=== PATIENT | male | born 1975 | race Caucasian/White ===

== ENCOUNTER 2017-05-03 06:55 | Emergency (ER) | payer OTHER ==
[~2017-05-03] VITALS: Ht 182.9 cm; Wt 88.5 kg
[2017-05-03] MEDS ORDERED: XANAX0.5 MG (07:42)
[2017-05-03] MEDS ORDERED: DIPHTH/TETANUS/ACEL. PERTUSSIS 0.5 ML SYR IM ONE (07:45)
[2017-05-03] MEDS ORDERED: ADDERALL 10 MG10 MG (07:49)
[2017-05-03] MEDS ORDERED: CHANTIX1 MG (07:50)
[2017-05-03] MEDS ORDERED: IBUPROFEN 600 MG TAB PO STA (07:58)
[2017-05-03] MEDS ORDERED: CLINDAMYCIN PHOS 600 MG/ 4 ML VIAL IM ONE (08:00)
[2017-05-03 10:01] VITALS: BP 124/77
== END 2017-05-03 08:40 | disposition home or self-care (01) ==
LOC: FSED 06:55
DX: S91.132A Puncture wound without foreign body of left great toe without damage to nail, initial encounter (principal); W45.0XXA Nail entering through skin, initial encounter; L03.116 Cellulitis of left lower limb; F98.8 Other specified behavioral and emotional disorders with onset usually occurring in childhood and adolescence; Z87.891 Personal history of nicotine dependence; Z23 Encounter for immunization
CPT/HCPCS: 99283

== ENCOUNTER 2017-05-20 10:43 | Emergency (ER) | payer OTHER ==
[~2017-05-20] VITALS: Ht 182.9 cm; Wt 88.5 kg
[~2017-05-20 10:43] MED LIST: ADDERALL 10 MG10 MG; CHANTIX1 MG; XANAX0.5 MG
--- OUTSIDE RECORDS SUMMARY | 2017-05-20 10:46 | XMS REPORT | Continuity of Care Document ---
Author Author [facility] Organization [facility] Address [address] [place] [address] Phone Unavailable Care Team Providers Care Playground Monitor Name Role Phone NO, PCP PCP Unavailable Insurance Providers Guarantor Bird Bell Address [address] [place] [address] Email NA [employer] Policy Number [id number] Subscriber's Name Bird Bell Relationship 18 Self / Same As Patient Advance Directives Directive Response Recorded Date/Time Does the patient have an advance directive? No 05/03/17 7:56am Do you have a Directive to Physician? No 05/03/17 7:56am Do you have a Medical Power of Panel Beater? No 05/03/17 7:56am Do you have an out of hospital Do Not Resuscitate Order? No 05/03/17 7:56am Do you have any special needs we should be aware of? No 05/03/17 7:56am Do you have a support person here with you today? Yes 05/03/17 7:56am Did patient receive Notice of Privacy Practices? Yes 05/03/17 7:56am Did patient receive patient rights and responsibilities? Yes 05/03/17 7:56am Problems No problem information available. Medications Current Home Medications Medication Dose Units Route Directions Days Qty Instructions Start Date Alprazolam (Xanax) 0.5 Mg Tablet Daily Amphet Asp/Amphet/D-Amphet (Adderall 10 Mg Tablet) 10 Mg Tablet Varenicline Tartrate (Chantix) 1 Mg Tablet Social History Smoking Status Start Date Stop Date Former smoker Hospital Discharge Instructions No hospital discharge instruction information available. Plan of Care Discharge Date 05/03/17 8:40am Disposition HOME, SELF-CARE Condition at Discharge Stable Instructions/Education Provided Cellulitis Forms Provided Work/School Excuse Prescriptions See Medication Section Additional Instructions/Education Follow-up immediately, if symptoms worsen , and if the redness or pain is increasing, or if you develop fever or chills. Keep the foot elevated as much as possible, for the next 4 -48 hours. Complete ALL antibiotics. In addition to the prescription pain medication, recommend: Ibuprofen 200 mg - 3 tabs together every 8 hours, with food, for the next 2-3 days, to help control the pain. Functional Status No functional status information available. Allergies, Adverse Reactions, Alerts No known allergies. Immunizations No immunization information available. Vital Signs Acute Vital Signs Vital Response Date/Time Pulse Pulse Rate (adult) 76 bpm (60 - 90) 05/03/2017 10:01am Respiratory Rate 16 bpm (12 - 24) 05/03/2017 10:01am Blood Pressure 124/77 mm Hg 05/03/2017 10:01am Height 6 ft 0 in 05/03/2017 7:00am Weight 195 lb 05/03/2017 7:00am Body Mass Index 26.4 kg/m^2 05/03/2017 7:00am Results No relevant diagnostic test, laboratory data and/or discharge summary information available. Procedures No procedure information available. Encounters Encounter Location Arrival/Admit Date Discharge/Depart Date Attending Provider Departed Emergency Room [facility] 05/03/17 6:55am 8:40am FABIÁN PRUITT MD
[2017-05-20 11:57] VITALS: BP 138/78
[2017-05-20] MEDS ORDERED: BUPIVACAINE HCL 0.5% 10ML MPF VIAL INJ ONE (12:00)
== END 2017-05-20 11:45 | disposition home or self-care (01) ==
LOC: FSED 10:43
DX: K08.9 Disorder of teeth and supporting structures, unspecified (principal); K02.9 Dental caries, unspecified
CPT/HCPCS: 99282

== ENCOUNTER 2018-02-04 11:26 | Emergency (ER) | payer BC, OTHER ==
[~2018-02-04] VITALS: Ht 182.9 cm; Wt 95.3 kg
[2018-02-04] MEDS ORDERED: ONDANSETRON HCL INJ 2 MG/ML VIAL IV STA (11:39)
[2018-02-04] MEDS ORDERED: MORPHINE SULFATE 5 MG/ML VIAL IV ONE (11:45)
--- NOTE | 2018-02-04 12:43 | Diagnostic Imaging Report ---
CT scan of the pelvis WITHOUT intravenous contrast. TECHNIQUE: Standard departmental protocols were used. Sagittal and coronal reformatted images were obtained. Total exam DLP: 302.69 HISTORY: Pain status post fall from ladder. COMPARISON: None. FINDINGS: Bones: No acute displaced fracture. Well corticated ossicle is present just lateral to the anterior lateral to the hip bilaterally which may reflect osteophytes or less likely prior avulsion injury. Joints: Joint spaces are preserved. Soft tissues: No acute abnormality. IMPRESSION: No acute osseous abnormality. Signed by: Dr. Dottie Caicedo M.D. on 02/04/2018 12:39 PM
--- NOTE | 2018-02-04 12:49 | Diagnostic Imaging Report ---
Examination: CT LUMBAR SPINE WITHOUT CONTRAST History: Low back pain after fall. Comparison studies: None Technique: Axial images were obtained through the lumbar spine from T12. Coronal and sagittal reconstructions obtained from the axial data. Dose modulation, iterative reconstruction, and/or weight based adjustment of the mA/kV was utilized to reduce the radiation dose to as low as reasonably achievable. Intravenous contrast: None Findings: The usual 5 non-rib bearing lumbar vertebral bodies are present. Alignment: Normal lordosis. No scoliosis. Soft tissues: No abnormalities. Paraspinal muscles: Unremarkable. Sacroiliac joints: No degenerative changes. Vertebrae: No fractures, infection or neoplasm. Degenerative changes: L1-L2 through L5-S1: No abnormalities. IMPRESSION: No acute abnormality. Signed by: Dr. Lin Flaherty M.D. on 02/04/2018 12:46 PM
[2018-02-04] MEDS ORDERED: MORPHINE SULFATE 2 MG/ML SYR IV STA (12:57)
--- NOTE | 2018-02-04 13:20 | Diagnostic Imaging Report ---
Right knee 3 views. Right femur 7 views HISTORY: Pain COMPARISON: None FINDINGS: No displaced fracture. Osseous alignment is within normal limits. The joint spaces are well-maintained. The soft tissues appear unremarkable. IMPRESSION: No acute radiographic abnormality. Signed by: Dr. Dottie Caicedo M.D. on 02/04/2018 1:17 PM
[2018-02-04 14:14] VITALS: BP 130/82
== END 2018-02-04 14:23 | disposition home or self-care (01) ==
LOC: FSED 11:26
DX: G89.11 Acute pain due to trauma (principal); M54.5 Low back pain; S70.11XA Contusion of right thigh, initial encounter; S80.01XA Contusion of right knee, initial encounter; W11.XXXA Fall on and from ladder, initial encounter; Y92.008 Other place in unspecified non-institutional (private) residence as the place of occurrence of the external cause
CPT/HCPCS: 72131; 72192; 73552; 73562; 99284; J2270 ×2; J2405

== ENCOUNTER 2018-04-21 08:28 | Emergency (ER) | payer BC ==
[~2018-04-21] VITALS: Ht 182.9 cm; Wt 95.3 kg
[~2018-04-21 08:28] MED LIST changes: -ADDERALL 10 MG10 MG; +ADDERALL 10 MG10 MG PO; -XANAX0.5 MG; +XANAX0.5 MG PO
--- OUTSIDE RECORDS SUMMARY | 2018-04-21 08:30 | XMS REPORT ---
Author Author [facility] Address Unknown Phone Unavailable Care Team Providers Care Assistant Professor Of Geography Name Role Phone Owen BUCKLEY Unavailable Unavailable Problems This patient has no known problems. Allergies, Adverse Reactions, Alerts This patient has no known allergies or adverse reactions. Medications This patient has no known medications. Results Test Description Test Time Test Comments Text Results Atomic Results Result Comments KNEE 3VW RT - HOPD 2018-02-04 13:13:00 [place] [address] Patient Name: BIRD ZARATE MR #: [id number] : 1975 Age/Sex: 42/M Req #: [id number] [facility] Physician: Ordered by: NIKHIL BUCKLEY MD Report #: [id number] Location: [facility] Room/Bed: Procedure: [id number] HOPD/KNEE 3VW RT - HOPD Exam Date: 02/04/18 Exam Time: 1256 REPORT STATUS: Signed Right knee 3 views. Right femur 7 views HISTORY: Pain COMPARISON: None FINDINGS: No displaced fracture. Osseous alignment is within normal limits. The joint spaces are well- maintained. The soft tissues appear unremarkable. IMPRESSION: No acute radiographic abnormality. Signed by: Dr. Dottie Mcmullen M.D. on 02/04/2018 1:17 PM Dictated By: JESSICA MCMULLEN MD, MD 16 Transcribed By: MERRILL on 02/04/181316 COPY TO: NIKHIL BUCKLEY MD FEMUR 2 VIEW RT - HOPD 2018-02-04 13:13:00 [place] [address] Patient Name: BIRD ZARATE MR #: [id number] : 1975 Age/Sex: 42/M Req #: [id number] Adm Physician: Ordered by: NIKHIL BUCKLEY MD Report #: [id number] Location: [facility] Room/Bed: Procedure: [id number] HOPD/FEMUR 2 VIEW RT - HOPD Exam Date: 02/04/18 Exam Time: 1245 REPORT STATUS: Signed Right knee 3 views. Right femur 7 views HISTORY: Pain COMPARISON: None FINDINGS: No displaced fracture. Osseous alignment is within normal limits. The joint spaces are well- maintained. The soft tissues appear unremarkable. IMPRESSION: No acute radiographic abnormality. Signed by: Dr. Dottie Mcmullen M.D. on 02/04/2018 1:17 PM Dictated By: JESSICA MCMULLEN MD, MD 16 Transcribed By: MERRILL on 02/04/181316 COPY TO: NIKHIL BUCKLEY MD CT LUMBAR SPINE WITHOUT-HOPD 2018-02-04 12:41:00 [place] [address] Patient Name: BIRD ZARATE MR #: [id number] : 1975 Age/Sex: 42/M Req #: [id number] Adm Physician: Ordered by: NIKHIL BUCKLEY MD Report #: [id number] Location: [facility] Room/Bed: Procedure: [id number] HOPD/CT LUMBAR SPINE WITHOUT-HOPD Exam Date: 02/04/18 Exam Time: 1228 REPORT STATUS: Signed Examination: CT LUMBAR SPINE WITHOUT CONTRAST History: Low back pain after fall. Comparison studies: None Technique: Axial images were obtained through the lumbar spine from T12. Coronal and sagittal reconstructions obtained from the axial data. Dose modulation, iterative reconstruction, and/or weight based adjustment of the mA/kV was utilized to reduce the radiation dose to as low as reasonably achievable. I ntravenous contrast: None Findings: The usual 5 non-rib bearing lumbar vertebral bodies are present. Alignment: Normal lordosis. No scoliosis. Soft tissues: No abnormalities. Paraspinal muscles: Unremarkable. Sacroiliac joints: No degenerative changes. Vertebrae: No fractures, infection or neoplasm. Degenerative changes: L1-L2 through L5-S1: No abnormalities. IMPRESSION: No acute abnormality. Signed by: Dr. Lin Flaherty M.D. on 02/04/2018 12:46 PM Dictated By: LIN LEWIS MD 1246 Transcribed By: MERRILL on 02/04/18 1246 COPY TO: NIKHIL BUCKLEY MD CT PELVIS WITHOUT-HOPD 2018-02-04 12:32:00 [place] [address] Patient Name: BIRD ZARATE MR #: [id number] : 1975 Age/Sex: 42/M Req #: [id number] [facility] Physician: Ordered by: NIKHIL BUCKLEY MD Report #: [id number] Location: [facility] Room/Bed: Procedure: [id number] HOPD/CT PELVIS WITHOUT-HOPD Exam Date: 02/04/18 Exam Time: 1227 REPORT STATUS: Signed CT scan of the pelvis WITHOUT intravenous contrast. TECHNIQUE: Standard departmental protocols were used. Sagittal and coronal reformatted images were obtained. Total exam DLP: 302.69 HISTORY: Pain status post fall from ladder. COMPARISON: None. FINDINGS: Bones: No acute displaced fracture. Well corticated ossicle is present just lateral to the anterior lateral to the hip bilaterally which may reflect osteophytes or less likely prior avulsion injury. Joints: Joint spaces are preserved. Soft tissues: No acute abnormality. IMPRESSION: No acute osseous abnormality. Signed by: Dr. Dottie Mcmullen M.D. on 02/04/2018 12:39 PM Dictated By: JESSICA MCMULLEN MD, MD 1239 Transcribed By: MERRILL on 02/04/18 1239 COPY TO: NIKHIL BUCKLEY MD
[2018-04-21 10:52] VITALS: BP 116/95
[2018-04-21] MEDS ORDERED: HYDROMORPHONE 2MG/ML 2 MG/ML ML IM PRN (12:15)
[2018-04-24] MEDS ORDERED: BACTRIM DS TAB1 EACH PO (11:47)
[2018-04-24] MEDS ORDERED: TYLENOL WITH C1 EACH PO (11:47)
== END 2018-04-21 11:00 | disposition home or self-care (01) ==
LOC: ER 08:28
DX: S80.11XA Contusion of right lower leg, initial encounter (principal); W11.XXXA Fall on and from ladder, initial encounter; Y92.008 Other place in unspecified non-institutional (private) residence as the place of occurrence of the external cause; F41.9 Anxiety disorder, unspecified
CPT/HCPCS: 93971; 99283; J1170

== ENCOUNTER 2018-04-21 17:38 | Emergency (ER) | payer BC ==
[~2018-04-21] VITALS: Ht 182.9 cm; Wt 95.3 kg
[2018-04-21 19:16] LABS: BASOPHILS % 0.3 % (0.0-1.0); EOSINOPHILS # (AUTO) 0.1 (0.0-0.4); EOSINOPHILS % 0.5 % (0.0-6.0); HEMATOCRIT 38.7 % (38.2-49.6); HEMOGLOBIN 13.7 g/dL (14.0-18.0); LYMPHOCYTES # (AUTO) 1.2 (1.0-3.2); LYMPHOCYTES % 12.2 % (18.0-39.1); MEAN CORPUSCULAR HEMOGLOBIN 33.3 pg (28-32); MEAN CORPUSCULAR HGB CONC 35.4 g/dL (31-35); MEAN CORPUSCULAR VOLUME 94.2 fL (81-99); MONOCYTES # (AUTO) 1.2 (0.2-0.8); NEUTROPHILS # (AUTO) 7.4 (2.1-6.9); NEUTROPHILS % 74.7 % (38.7-80.0); PLATELET COUNT 253 x10e3/uL (140-360); RED BLOOD COUNT 4.11 x10e6/uL (4.3-5.7); RED CELL DISTRIBUTION WIDTH 12.2 % (11.7-14.4)
[2018-04-21 19:28] LABS: INR 0.9; PARTIAL THROMBOPLASTIN TIME 27.4 seconds (23.8-35.5)
[2018-04-21] MEDS ORDERED: ONDANSETRON HCL INJ 2MG/ML 2ML 2 MG/ML VIAL IV ONE (19:30)
[2018-04-21] MEDS ORDERED: MORPHINE SULFATE INJ 4 MG/ML INJ 1ML IV ONE (19:30)
[2018-04-21 19:42] LABS: ALANINE AMINOTRANSFERASE 19 IU/L (0-55); ALBUMIN 3.9 g/dL (3.5-5.0); ALBUMIN/GLOBULIN RATIO 1.6 (0.8-2.0); ALKALINE PHOSPHATASE 74 IU/L (40-150); ANION GAP 14.8 mmol/L (8-16); BLOOD UREA NITROGEN 14 mg/dL (7-26); BUN/CREATININE RATIO 15 (6-25); CALCIUM 8.8 mg/dL (8.4-10.2); CARBON DIOXIDE 24 mmol/L (22-29); CHLORIDE 104 mmol/L (98-107); CREATINE KINASE 160 IU/L (30-200); CREATININE, SERUM 0.95 mg/dL (0.72-1.25); EST GLOMERULAR FILTRATION RATE > 60 ML/MIN (60-); GLUCOSE 75 mg/dL (74-118); POTASSIUM 3.8 mmol/L (3.5-5.1); SODIUM 139 mmol/L (136-145)
[2018-04-21] MEDS ORDERED: IOPAMIDOL 370 MG/ML 200 ML INFUS..BTL INJ ONE (20:13)
[2018-04-21] MEDS ORDERED: SODIUM CHLORIDE 0.9% 50ML 50 ML ONE (20:13)
--- NOTE | 2018-04-21 20:15 | NUR ---
RECEIVED REPORT FROM ANDREI CARRENO DAY SHIFT NURSE.
--- NOTE | 2018-04-21 20:15 | NUR ---
REPORT GIVEN TO ANDREI URIBE SHOP ESTIMATOR NURSE.
[2018-04-21] MEDS ORDERED: MORPHINE SULFATE 2 MG/ML SYR 1ML IV STA (21:29)
--- NOTE | 2018-04-21 21:44 | Diagnostic Imaging Report ---
EXAM: CT right lower extremity WITH contrast INDICATION: SWELLING OF CALF COMPARISON: Right knee radiographs 02/04/2018 TECHNIQUE: Right lower extremity was scanned utilizing a multidetector helical scanner after administration of IV contrast. Coronal and sagittal reformations were obtained. Routine protocol was performed. IV CONTRAST: 100 mL of Isovue-370 COMPLICATIONS: None RADIATION DOSE: Total DLP: 534.92 mGy*cm Dose modulation, iterative reconstruction, and/or weight based adjustment of the mA/kV was utilized to reduce the radiation dose to as low as reasonably achievable. FINDINGS: BONES: Unremarkable. SOFT TISSUES: Approximately 18 x 10.7 x 5.9 cm collection is seen in the medial knee and proximal leg. Collection appears encapsulated, conforming to the fascia, with areas of nodularity/thickening, for example a 2.2 cm area along on the anterior aspect (axial soft tissue, series 3 image 222). The collection appears new within the limitations of x-ray comparison when comparing current foil operator radiographs to previous knee radiographs performed on 02/04/2018. IMPRESSION: Encapsulated 18 cm collection in the medial aspect of the right knee and proximal calf. In the setting of trauma, findings may suggest Booker-Lavall?e lesion. Areas of nodularity are noted which can also be seen with Booker-Lavall?e lesions, although underlying lesion difficult to exclude. If surgery not considered, recommend follow-up ultrasound to document resolution. Signed by: DR. Jason Waller MD on 04/21/2018 9:41 PM
[2018-04-21] MEDS ORDERED: MORPHINE SULFATE INJ 4 MG/ML INJ 1ML IV STA (22:47)
[2018-04-21 22:51] LABS: BILIRUBIN,URINE NEGATIVE (NEGATIVE); CLARITY,URINE CLEAR (CLEAR); COLOR,URINE YELLOW (YELLOW); KETONES,URINE NEGATIVE (NEGATIVE); LEUKOCYTE ESTERASE ,URINE NEGATIVE (NEGATIVE); NITRITE,URINE NEGATIVE (NEGATIVE); PROTEIN,URINE DIPSTICK NEGATIVE (NEGATIVE); URINE UROBILINOGEN 0.2 mg/dL (0.2 - 1)
[2018-04-21 22:53] LABS: EPITHELIAL CELLS,URINE FEW /LPF; RBC,URINE 0-5 /HPF (0-5); WBC,URINE (MAN) 0-5 /HPF (0-5)
[2018-04-21 23:18] VITALS: BP 109/82
[2018-04-22] MEDS ORDERED: HYDROMORPHONE 2MG/ML 2 MG/ML ML IV ONE ×2 (09:00→11:30)
[2018-04-24] MEDS ORDERED: BACTRIM DS TAB1 EACH PO (11:47)
[2018-04-24] MEDS ORDERED: TYLENOL WITH C1 EACH PO (11:47)
== END 2018-04-21 23:55 | disposition home or self-care (01) ==
LOC: ER 17:38
DX: M79.661 Pain in right lower leg (principal); S80.11XA Contusion of right lower leg, initial encounter; W11.XXXA Fall on and from ladder, initial encounter; Y92.008 Other place in unspecified non-institutional (private) residence as the place of occurrence of the external cause
CPT/HCPCS: 29530; 36415; 73701; 80053; 81001; 82550; 82553; 83605; 83880; 84484; 85025; 85610; 85730; 87040; 87086; 99284; J2270; J2405; Q9967

== ENCOUNTER → 2018-04-24 | Day surgery (SDC) | payer BC ==
[~2018-04-24] MED LIST changes: +BACITRACIN ZINC 15 GM OINT ONE; +BACTRIM DS TAB1 EACH PO; +CEFAZOLIN SOD 1 GM VIAL ONE; +DEXAMETHASONE SOD PHOS INJ 4 MG/ML VIAL ONE; +FENTANYL CITRATE/PF 100MCG/2 ML INJ ONE; +HYDROGEN PEROXIDE 120 ML BTL ONE; +KETOROLAC TROMETHAMINE 30 MG/ML VIAL ONE; +LIDOCAINE HCL 2% LOCAL INJ 5 ML SDV VIAL INJ ONE; +MIDAZOLAM HCL 2 MG/2 ML VIAL ONE; +ONDANSETRON HCL INJ 2MG/ML 2ML 2 MG/ML VIAL ONE; +PROPOFOL IV EMULSION 10 MG/ML 20 ML VIAL ONE; +SEVOFLURANE INHAL SOLN 250 ML PEN BTL ONE; +TYLENOL WITH C1 EACH PO
[2018-04-24 15:15] VITALS: BP 120/64
--- NOTE | 2018-04-24 23:22 | Operative Report ---
DATE OF PROCEDURE: 04/24/2018 PREOPERATIVE DIAGNOSIS: Traumatic fluid collection, right leg, possible liquefied hematoma. POSTOPERATIVE DIAGNOSIS: Liquefied hematoma. PROCEDURE PERFORMED: Incision and drainage of hematoma of the right leg over the calf region. ANESTHESIA: General. ESTIMATED BLOOD LOSS: Minimal. DRAINS: None. COMPLICATIONS: None. INDICATION AND FINDINGS: The patient is 42-year-old male, who fell on February 08 at home from a ladder while attempting to hang some [place] lights. The patient was evaluated at the emergency room. They did x-rays at that time and no fracture was found. The patient was sent to follow up with Orthopedics. Apparently, he did not, but then 2 or 3 days ago, he began to notice more pain and swelling over the right calf area. He came back to the emergency room, where a CT scan revealed a fluid collection in the area of the calf medially and posteriorly. There was no evidence of bony injury. The patient was initially referred to Orthopedics, but Orthopedics advised referral to general surgeon. I was on-call for the emergency room, so I accepted the patient. This happened on February 19. I saw the patient in my office on February 20 and he was complaining of severe pain to the right calf region, not alleviated by Tylenol No. 3. He requested Lortab, which was given to him. Of note is the fact that while in the emergency room on 04/22/2018, underwent venous Doppler of the lower extremity and deep clot was ruled out. INTRAOPERATIVE FINDINGS: The patient had a liquefied hematoma, non-infected, about 500 mL were easily aspirated. A 10 mm flat Alexys Sanchez drain was placed to drain the entire cavity, which was rather large, extended from the area of the popliteal region inferiorly to the lower leg inferiorly occupying the posterior and middle part of the calf region. DESCRIPTION OF PROCEDURE: With patient lying on the operation table in the supine position, after administration of general anesthesia, he was prepped and draped for incision and drainage of fluid collection of the right calf region. An incision was made over the most fluctuant area, and the cavity was entered, large amounts of fluid were extracted, liquefied hematoma, did not appear to be infected, about 500 mL in total were aspirated or drained, and then we irrigated the cavity, then we placed a 10 mm flat Alexys Sanchez drain through corner incision inferior to the previously placed and brought it up to the upper calf popliteal region and exited through this lower incision and secured there with 2-0 nylon. The upper small incision was closed using 3-0 nylon. The drain was connected to self suction. We went ahead and then proceeded to put a pressure dressing with Kerlix, Mic wraps. The drain was connected to self suction. The patient tolerated the procedure well, taken to recovery room in stable condition. MD ITALO Odom/ZARI /[id number]
== END | disposition home or self-care (01) ==
LOC: OR 11:18
PROVIDERS: ATTEND Surgery
DX: S80.11XA Contusion of right lower leg, initial encounter (principal); W11.XXXA Fall on and from ladder, initial encounter; Y93.89 Activity, other specified; Y99.8 Other external cause status; Z87.891 Personal history of nicotine dependence
CPT/HCPCS: 10140; 87071; 87075; 87205; 93005; J0690; J1100; J1885; J2001; J2250; J2405; J2704